=== PATIENT | male | born 1980 | race Two or more races ===

== ENCOUNTER 2023-12-05 10:30 | Inpatient (IN) | payer MEDICAID, OTHER ==
[~2023-12-05] VITALS: Ht 165.1 cm; Wt 73.1 kg
[2023-12-05 10:58] LABS: Basophils # (auto) 0.1 10 ^3/uL (0-0.2); Basophils % (auto) 1.2 % (0.0-2.0); Eosinophils # (auto) 0.1 10 ^3/uL (0-0.8); Eosinophils % (auto) 2.4 % (0.0-7.0); Hemoglobin 16.7 g/dL (13.5-17.5); Lymphocytes # (auto) 2.4 10 ^3/uL (0.4-5.4); Lymphocytes % (auto) 40.2 % (10.0-50.0); Mean Corpuscular Hemoglobin 31.3 pg (28.0-32.0); Monocytes # (auto) 0.6 10 ^3/uL (0-1.3); Monocytes % (auto) 10.5 % (0.0-12.0); Neutrophils # (auto) 2.7 10 ^3/uL (1.6-8.6); Neutrophils % (auto) 45.7 % (37.0-80.0); Nucleated Red Blood Cells % 0.1 %; Red Blood Cells 5.32 10^6/uL (4.5-5.90); Red Cell Distribution Width 12.2 % (11.8-14.3); White Blood Cell 5.9 10^3/uL (4.4-10.8)
[2023-12-05] MEDS: ASPirin-EC 325mg tab PO ONE (11:00)
[2023-12-05 11:15] LABS: INR 0.99 (0.9-1.15); Prothrombin Time 10.4 sec (9.3-11.8)
[2023-12-05 11:22] LABS: Alanine Aminotransferase 28 U/L (7-40); Albumin 4.4 g/dL (3.2-4.8); Alkaline Phosphatase 107 U/L (46-116); Anion Gap 5 (5-15); Aspartate Aminotransferase 18 U/L (13-40); BUN/Creatinine Ratio 7.5 (10.0-20.0); Blood Urea Nitrogen 6 mg/dL (9-23); Calcium 9.2 mg/dL (8.7-10.4); Carbon Dioxide 32 mmol/L (20-30); Chloride 97 mmol/L (98-107); Glucose 314 mg/dL (74-106); Lipase 48 U/L (12-53); Potassium 3.7 mmol/L (3.5-5.1); Sodium 134 mmol/L (136-145)
[2023-12-05 11:23] LABS: Bilirubin, Total 0.4 mg/dL (0.2-1.0); Total Protein 7.5 g/dL (5.7-8.2)
[2023-12-05 11:35] LABS: Bilirubin, Direct 0.1 mg/dL (<0.3)
[2023-12-05] MEDS: NITROGLYCERIN 2% OINT 1GM PKG TD ONE (13:45)
[2023-12-05] MEDS ORDERED: DEXTROSE (50%) 50ML SYRG IV PRN (15:00)
[2023-12-05] MEDS ORDERED: HYDROmorphone HCL 2 MG/ML VL/or syr IV PRN (15:00)
[2023-12-05] MEDS ORDERED: HYDROcodone-ACET 5/325MG TAB PO PRN (15:00)
[2023-12-05] MEDS ORDERED: ONDANSETRON HCL 4 MG/2 ML VIAL IV PRN (15:00)
[2023-12-05] MEDS ORDERED: MORPHINE SULFATE INJ 2 MG/ml SYRG IV PRN (15:00)
[2023-12-05] MEDS ORDERED: DOCUSATE SOD 100 MG CAP PO PRN (15:00)
[2023-12-05] MEDS ORDERED: NITROGLYCERIN 0.4 MG SL TAB SL PRN (15:00)
[2023-12-05 15:29] LABS: Triglycerides 118 mg/dL (< 150)
[2023-12-05 15:30] LABS: LDL Cholesterol 55 mg/dL (< 100)
[2023-12-05 15:31] LABS: Cholesterol 139 mg/dL (< 200); HDL Cholesterol 70 mg/dL (40-59)
[2023-12-05] MEDS: InsuLIN REG 1unit/0.01ml Soln (100units/ml) SC SCH (16:37)
[2023-12-05] MEDS: ACCU-CHEK COMFORT CURVE STRIP VI SCH (17:12)
[2023-12-05 20:46] LABS: Amphetamine Screen, Urine Pos (NEGATIVE); Barbiturate Scree,Urine Neg (NEGATIVE); Benzodiazephine Screen, Urine Neg (NEGATIVE); Cannabinoid Screen, Urine Neg (NEGATIVE); Cocaine Screen, Urine Pos (NEGATIVE); Opiate Scree,Urine Neg (NEGATIVE); Phencyclidine Screen, Urine Neg (NEGATIVE)
[2023-12-05 21:00] VITALS: PULSE 94; RESP 20; O2SAT 95
[2023-12-05] MEDS: SODIUM CHLOR 0.9% PF (SALINE LOCK) 10ML VIAL/SYR IV SCH (21:04)
[2023-12-06 08:00] VITALS: PULSE 82; RESP 20; O2SAT 99
[2023-12-06] MEDS: ENOXAPARIN SOD 40 MG/0.4 ML SYRINGE SC SCH (10:11)
[2023-12-06] MEDS: amLODIPine BESYLATE 5 MG TAB PO SCH (10:12)
[2023-12-06] MEDS: LOSARTAN POTASSIUM 25 MG TAB PO SCH (10:12)
[2023-12-06] MEDS: FAMOTIDINE 20 MG TAB PO SCH (10:12)
[2023-12-06] MEDS: NITROGLYCERIN 0.2MG/HR TOPICAL PATCH TD SCH (10:13)
[2023-12-06] MEDS: INSULIN LANTUS (GLARGINE) 1 /0.01ml (100units/ml) SC SCH (10:17)
[2023-12-06 19:43] VITALS: PULSE 94; RESP 20; O2SAT 97
[2023-12-06 19:45] VITALS: BP 144/90; PULSE 94; RESP 20; TEMP 98.3; O2SAT 97
[2023-12-06 20:00] VITALS: PULSE 85
[2023-12-07] VITALS (8 sets, daily range): BP systolic 144–160; BP diastolic 91–112; PULSE 74–91; RESP 16–20; TEMP 97.5–98.3; O2SAT 97–99
[2023-12-07] MEDS: ACETAMINOPHEN 325 MG TAB PO PRN (05:58)
[2023-12-07] MEDS: ENALAPRILAT 1.25 MG/ML-1ML VIAL IV PRN (12:40)
[2023-12-07] MEDS: hydrALAZINE HCL 20 MG/ML VL IV PRN (17:50)
[2023-12-08 05:00] VITALS: BP 168/69; PULSE 55; RESP 18; TEMP 98.2; O2SAT 98
[2023-12-08 07:33] VITALS: PULSE 79
[2023-12-08 09:00] VITALS: BP 134/91; PULSE 101; RESP 18; TEMP 98; O2SAT 99
[2023-12-08] MEDS ORDERED: METF-372 PO (10:12)
[2023-12-08] MEDS ORDERED: LOSA25TA15 PO (10:12)
[2023-12-08] MEDS ORDERED: NIFE1TAB30 PO (10:12)
[2023-12-08] MEDS: NIFEdipine ER 30 MG TAB PO SCH (10:42)
== END 2023-12-08 12:33 | disposition home or self-care (01) | DRG 198 ==
LOC: ER 10:30 → TELE 15:02 → TELE-CENTR 12-06 18:31
PROVIDERS: ADMIT Internal Medicine; ATTEND Family Medicine
DX: I20.1 Angina pectoris with documented spasm (principal); E11.65 Type 2 diabetes mellitus with hyperglycemia; I16.0 Hypertensive urgency; I25.5 Ischemic cardiomyopathy; F10.10 Alcohol abuse, uncomplicated; F15.10 Other stimulant abuse, uncomplicated; F17.210 Nicotine dependence, cigarettes, uncomplicated; E66.3 Overweight; Y92.098 Other place in other non-institutional residence as the place of occurrence of the external cause; Z71.51 Drug abuse counseling and surveillance of drug abuser; Z83.3 Family history of diabetes mellitus; Z82.49 Family history of ischemic heart disease and other diseases of the circulatory system; Z68.28 Body mass index [BMI] 28.0-28.9, adult
CPT/HCPCS: 36415; 71045; 80048; 80061; 80076; 80307; 82962; 83036; 83690; 84484; 85025; 85379; 85610; 93005; 93306; 96372; G0378; J1815